=== PATIENT | male | born 1950 | race African-American/Black ===

== ENCOUNTER 2018-02-16 18:16 | Emergency (ER) | payer OTHER, MEDICAID ==
[~2018-02-16] VITALS: Ht 185.4 cm; Wt 65.8 kg
[~2018-02-16 18:16] MED LIST: ASPI81TA27 PO; BUDE80AE3 IN; ENAL20TA70 PO; GABA300C10 PO
[2018-02-16 18:58] LABS: Urine Bacteria NONE SEEN /hpf (None Seen); Urine Blood Negative /uL (Negative); Urine Hyaline Cast FEW /lpf (0 - 2); Urine Specific Gravity 1.015 (1.001-1.035); Urine WBC 10 /hpf (0 - 3)
[2018-02-16] MEDS ORDERED: AZITHROMYCIN 250 MG TAB PO ONE (20:30)
[2018-02-16] MEDS ORDERED: cefTRIAXone SODIUM 250 MG VL IM ONE (20:30)
[2018-02-16 21:09] VITALS: BP 178/106
== END 2018-02-16 21:14 | disposition home or self-care (01) ==
LOC: ER 18:16
DX: N39.0 Urinary tract infection, site not specified (principal); I10 Essential (primary) hypertension; Z86.19 Personal history of other infectious and parasitic diseases
CPT/HCPCS: 81001; 96372; 99283; J0696